=== PATIENT | male | born 1955 | race Caucasian/White ===

== ENCOUNTER → 2017-02-09 | Outpatient (CLI) | payer OTHER ==
[~2017-02-09] MED LIST: HYDR-3288 PO; LISI10TA3 PO; LORT5TAB PO; TOBR.3%O OS; TRAM50TA PO; Z.0.NO CURRENT MEDS
[2017-02-09 10:24] LABS: AUTOMATED NEUTROPHIL # 5.5 TH/MM3 (1.8-7.7); BASOPHIL # 0.1 TH/MM3 (0-0.2); BASOPHIL % 0.7 % (0.0-2.0); EOSINOPHIL # 0.1 TH/MM3 (0-0.4); EOSINOPHIL % 0.9 % (0.0-4.0); LYMPH % 21.2 % (9.0-44.0); LYMPHOCYTE # 1.7 TH/MM3 (1.0-4.8); MEAN CELL VOLUME 77.3 FL (80.0-100.0); MEAN CORPUSCULAR HEMOGLOBIN 24.6 PG (27.0-34.0); MEAN CORPUSCULAR HGB CONC 31.8 % (32.0-36.0); MONO % 7.3 % (0.0-8.0); NEUT % 69.9 % (16.0-70.0); PLATELET COUNT 229 TH/MM3 (150-450); RED BLOOD COUNT 5.44 MIL/MM3 (4.50-5.90); RED CELL DISTRIBUTION WIDTH 15.7 % (11.6-17.2); WHITE BLOOD COUNT 7.9 TH/MM3 (4.0-11.0)
[2017-02-09 10:25] LABS: HEMO FLAGS AUTO DIFF
[2017-02-09 11:02] LABS: SCAN/DIFF AUTO DIFF CONFIRMED
--- NOTE | 2017-02-09 11:30 | EKG ---
Date Performed: 02/09/2017 Time Performed: 10:35:42 PTAGE: 61 years EKG: SINUS BRADYCARDIA BORDERLINE ECG NO PREVIOUS TRACING DOCTOR: Nicanor Kimble Interpretating Date/Time 02/09/2017 11:28:05
== END ==
LOC: CPRE 09:52
PROVIDERS: ATTEND Orthopaedic Surgery Orthopaedic Surgery of the Spine
DX: Z01.810 Encounter for preprocedural cardiovascular examination (principal); Z01.812 Encounter for preprocedural laboratory examination; M48.06 Spinal stenosis, lumbar region; R94.31 Abnormal electrocardiogram [ECG] [EKG]
CPT/HCPCS: 36415; 85025; 93005

== ENCOUNTER 2017-02-17 13:28 | Day surgery (SDC) | payer OTHER ==
--- NOTE | 2017-02-16 19:13 | MH ---
cc: MECHELLE SALCEDO DATE OF ADMISSION 02/17/2017 ADMISSION DIAGNOSIS Herniated nucleus pulposus lumbar spine. 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 He had immediate sharp shooting pain down the right leg to the foot. The patient complained of weakness with dorsiflexion of his foot. This initially happened on May 21, 2016. He was seen at [facility] Emergency Room where he was examined and x-rays were obtained. He was given an injection. He followed with my partner Dr. Flores. He underwent physical therapy with no relief. An MRI scan was obtained and I initially saw him in consultation on 11/22/2016. My evaluation at that time showed evidence of a disk herniation L4-5 to the right. He was sent for interventional pain with epidural steroid injections that was of no benefit to the patient. The patient on last evaluation was still having significant pain into the right leg with weakness. He is felt to be a candidate for surgical treatment. PAST MEDICAL HISTORY, SOCIAL HISTORY, FAMILY HISTORY AND REVIEW OF SYMPTOMS See attached notes. PHYSICAL EXAMINATION VITAL SIGNS: 5 feet 8 inches, 230 pounds, BMI 35. Blood pressure 140/86. HEENT: Normocephalic, atraumatic. Pupils equal, round, reactive to light and accommodation. Extraocular motions intact. NECK: Supple. CHEST: Clear. HEART: Regular rate and rhythm. ABDOMEN: Soft, nontender, normoactive sounds. MUSCULOSKELETAL: Examination of the thoracolumbar spine, tenderness in the lumbar spine, mild to moderate spasm is seen. Pain with range of motion. Motor strength shows right extensor hallucis longus 4/5, right plantar flexion gastroc soleus 4/5. Right Achilles reflex is diminished. Sensation is altered in the dorsum of the right foot extending to the lateral border of the leg. Straight leg raising is positive at 60 degrees when sitting in the supine position. In investigative studies shows evidence of a central and right-sided disk herniation L4-5 with a sequestered fragment. IMPRESSION 1. Herniated nucleus pulposus L4-5, right. 2. Right lumbar radiculopathy . PLAN Lumbar laminectomy right L4, L5, lateral recess decompression, resection herniated nucleus pulposus, use of dilation port microscope. CONSENT The risks of the surgery including infection, bleeding, loss of motion, continued pain, need for further surgery, neurologic and vascular injury. The patient understands these issues and wishes to press on with surgery as outlined above. MD ALMAS Montgomery/RICARDO /5:48 PM /6:54 PM
[~2017-02-17] VITALS: Ht 172.7 cm; Wt 108.6 kg
[~2017-02-17 13:28] MED LIST changes: -HYDR-3288 PO; +KETOROLAC TROMETHAMINE 30 MG/ML (IVP) VIAL IV PUSH ONE; -LORT5TAB PO; +NEOSTIGMINE 3 MG/3 ML SYR IV ONE; +ONDANSETRON HCL 4 MG/2 ML VIAL IV PUSH ONE; +PROPOFOL 200 MG/20 ML AMP IV ONE; -TOBR.3%O OS; -Z.0.NO CURRENT MEDS; +ePHEDrine/NS 25 MG/5 ML SYR IV ONE
[2017-02-17] MEDS ORDERED: METOPROLOL TARTRATE 25 MG TAB PO PRN (14:00)
[2017-02-17] MEDS ORDERED: CHLORHEXIDINE GLUCONATE 2 % 1 PACK (2 CLOTHS) TOPICAL PRN (14:00)
[2017-02-17] MEDS ORDERED: POVIDONE IODINE 5% (ANTISEPSIS KIT) 4 APPLICATIONS EACH NARE PRN (14:00)
[2017-02-17] MEDS ORDERED: LACTATED RINGER'S 1000 ML IV PRN (14:00)
[2017-02-17] MEDS ORDERED: SODIUM CHLORID 0.9% 500 ML IV PRN (14:00)
[2017-02-17] MEDS ORDERED: INSULIN HUMAN REGULAR 1,000 UNITS/10 ML VIAL SQ PRN (14:00)
[2017-02-17] MEDS ORDERED: ceFAZolin 2 GM PREMIX 50 ML IV SCH (14:00)
[2017-02-17] MEDS ORDERED: POVIDONE IODINE 7.5% SCRUB 118 ML BOTTLE TOPICAL SCH (14:00)
[2017-02-17 14:15] VITALS: BP 118/113; PULSE 60; RESP 18; TEMP 97.8; O2SAT 98
[2017-02-17] MEDS ORDERED: ceFAZolin INJ 1,000 MG VIAL ONE (15:47)
[2017-02-17] MEDS ORDERED: GENTAMICIN SULFATE 80 MG/2 ML VIAL ONE (15:47)
[2017-02-17] MEDS ORDERED: ACETAMINOPHEN 1000 MG/100 ML VIAL IV ONE (15:49)
[2017-02-17] MEDS ORDERED: fentaNYL CITRATE 250 MCG/5 ML AMP ONE (15:49)
[2017-02-17] MEDS ORDERED: HYDR-3288 PO (17:01)
[2017-02-17] MEDS ORDERED: GELATIN 12 MM/7 MM FOAM ONE (17:57)
[2017-02-17] MEDS ORDERED: BETAMETHASONE SOD PHOS/ACETATE SUSP 30 MG/5 ML VIAL ONE (17:57)
--- NOTE | 2017-02-17 18:13 | PD.OP ---
cc: Hilario Gomez MD Operative Report Date of Surgery: February 17, 2017 Preoperative Diagnosis: Herniated nucleus pulposus, L4 5, right. Right lumbosacral radiculopathy Postoperative Diagnosis: Same Procedure: Lumbar laminectomy from the right L4, L5, partial bilateral laminectomy, lateral recess decompression, resection herniated nucleus pulposus Anesthesia: Gen. Surgeon: Hilario Gomez Transportation Mechanic(s): BINH Pappas Operation and Findings: EBL: 50 cc INDICATION: This patient is a 61-year-old male with a work-related injury. He has developed back and radiating right leg pain. Investigative studies shows evidence of a disc herniation at and just below the disc space to the right at L4 5. He presents for surgical treatment. NOTE: Shi Pappas PA-C was present for the entire surgical procedure as my retail assistant manager. In my medical opinion her skill and care was necessary for the proper management of this patient. PROCEDURE: The patient was brought to the operating room and anesthetized in the supine position. The patient was rolled to a prone position on a Jaime frame on a Jimmie table. All pressure points were protected in the back was scrubbed with alcohol followed by Hibiclens followed by ChloraPrep and draped sterilely. A timeout was done and antibiotics were given. AP and lateral radiographic images were used to identify the proper levels and perform skin markings. We started from the right side at the 45 level. A paramedian incision was made and an off-midline fascial incision was made. A dilating system was placed down to the interlaminar space and held provisionally to the side of the table. The microscope was brought into the field. A high-speed bur under the microscope was used to perform a predominate a right sided laminectomy from that side. A lateral recess decompression on the right side was accomplished using straight and angled Kerrison punches. A partial medial facetectomy was accomplished. The crossing and exiting nerve roots were completely decompressed. There was a disc herniation at the disc space with significant prominence of the annulus. Extended just below the disc space lifting annulus. An annulotomy was performed and disc fragments were removed. The disc space was now completely flattened and there was no compression upon the crossing L5 nerve root. The wound was irrigated copiously. A small piece of Gelfoam with Celestone was placed into the epidural space. Hemostasis was controlled. The deep fascia was approximated with interrupted 0 Vicryl suture subcutaneous suture with 2-0 Vicryl suture and skin with running intradermal 3-0 Vicryl followed by Dermabond. A field block with local anesthesia was utilized. A sterile dressing was applied. The sponge count and needle counts and instrument counts were all correct. The patient tolerated the procedure well as taken to the recovery room in satisfactory condition. FINDINGS: Was evidence of a disc herniation centrally into the right lifting the annulus from its attachment to the cephalad portion of L5. The lateral recess nerve root compression was moderate to significant. At the end of the procedure there was no nerve root compromise. No complication was appreciated. Hilario Gomez MD February 17, 2017 18:13
[2017-02-17] MEDS ORDERED: DO NOT ADM ANY ANTICOAGULANT DRUGS PRN (18:41)
[2017-02-17 20:00] VITALS: TEMP 98.2
--- NOTE | 2017-02-17 20:34 | RADRPT ---
EXAM DATE/TIME: 02/17/2017 17:19 [facility] COMPARISON: No previous studies available for comparison. INDICATIONS : Level localization for a lumbar laminectomy, L4. MEDICAL HISTORY : Unobtainable. SURGICAL HISTORY : Unobtainable. ENCOUNTER: Initial ACUITY: 1 day PAIN SCORE: Non-responsive. LOCATION: Lumbar. FINDINGS: One are seen posteriorly at the L4/L5 level. CONCLUSION: Pointer is at L4/L5. Arun Gonzalez MD on February 17, 2017 at 20:32 Board Certified Radiologist. This report was verified electronically.
== END 2017-02-17 20:08 | disposition home or self-care (01) ==
LOC: HSDC 13:28
PROVIDERS: ATTEND Orthopaedic Surgery Orthopaedic Surgery of the Spine
DX: M51.16 Intervertebral disc disorders with radiculopathy, lumbar region (principal); I10 Essential (primary) hypertension; E66.9 Obesity, unspecified; Z68.36 Body mass index [BMI] 36.0-36.9, adult
CPT/HCPCS: 00630; 63030; 72020; 76000; J0131; J0690; J0702; J1580; J1885; J2405; J2710; J3010

== ENCOUNTER → 2017-09-23 | Outpatient (CLI) | payer OTHER ==
[~2017-09-23] MED LIST changes: +HYDR-3288 PO; -KETOROLAC TROMETHAMINE 30 MG/ML (IVP) VIAL IV PUSH ONE; -NEOSTIGMINE 3 MG/3 ML SYR IV ONE; -ONDANSETRON HCL 4 MG/2 ML VIAL IV PUSH ONE; -PROPOFOL 200 MG/20 ML AMP IV ONE; -ePHEDrine/NS 25 MG/5 ML SYR IV ONE
--- NOTE | 2017-09-23 10:53 | RADRPT ---
EXAM DATE/TIME: 09/23/2017 09:57 [facility] COMPARISON: No previous studies available for comparison. INDICATIONS : Pain from sciatic nerve. MEDICAL HISTORY : None. SURGICAL HISTORY : None. ENCOUNTER: Initial ACUITY: 4 - 6 months PAIN SCORE: 6/10 LOCATION: Right Lower leg. FINDINGS: Two view examination of the right tibia demonstrates no evidence of fracture or dislocation. Bony mi neralization is normal. There is diffuse soft tissue prominence. CONCLUSION: Negative exam with no underlying bony abnormality. Rm Moses MD on September 23, 2017 at 10:49 Board Certified Radiologist. This report was verified electronically.
--- NOTE | 2017-09-23 10:54 | RADRPT ---
EXAM DATE/TIME: 09/23/2017 09:59 [facility] COMPARISON: No previous studies available for comparison. INDICATIONS : Pain from sciatic nerve. MEDICAL HISTORY : None. SURGICAL HISTORY : None. ENCOUNTER: Initial ACUITY: 4 - 6 months PAIN SCORE: 5/10 LOCATION: Right Ankle. FINDINGS: Three view exam was performed of the right ankle. The bony structures are in normal alignment. No e vidence of fracture or dislocation. There is diffuse soft tissue prominence. The ankle mortise is int act. The ankle mortise is intact. No radiopaque foreign bodies are seen. Bony mineralization is nor mal. CONCLUSION: Diffuse soft tissue prominence with no underlying bony abnormality. Rm Moses MD on September 23, 2017 at 10:52 Board Certified Radiologist. This report was verified electronically.
== END ==
LOC: HRAD 09:28
PROVIDERS: ATTEND Family Medicine
DX: M79.604 Pain in right leg (principal)
CPT/HCPCS: 73590; 73610

== ENCOUNTER → 2017-10-19 | Outpatient (CLI) | payer OTHER ==
--- NOTE | 2017-10-19 17:03 | RADRPT ---
EXAM DATE/TIME: 10/19/2017 16:24 [facility] COMPARISON: No previous studies available for comparison. INDICATIONS : Right leg swelling and pain. MEDICAL HISTORY : Hypertension. Back pain. SURGICAL HISTORY : Cholecystectomy. ENCOUNTER: Initial ACUITY: >1 year PAIN SCORE: 4/10 LOCATION: Right leg. TECHNIQUE: Venous ultrasound of the leg was performed from the inguinal ligament to the proximal calf. Real-marysol e, color Doppler and spectral tracing, compression and augmentation techniques were used. FINDINGS: There is normal compressibility of the deep venous system from the inguinal region to the proximal ca lf. No echogenic clot is seen in the lumen of the common femoral, femoral, popliteal, and posterior tibial veins. There is a normal response of the venous system to proximal and distal augmentation an d respiration. CONCLUSION: Negative for DVT. Delfino Birmingham MD FACR on October 19, 2017 at 17:01 Board Certified Radiologist. This report was verified electronically.
== END ==
LOC: HRAD 16:04
DX: R22.41 Localized swelling, mass and lump, right lower limb (principal); M79.604 Pain in right leg
CPT/HCPCS: 93971